=== PATIENT | female | born 1950 | race Caucasian/White ===

== ENCOUNTER → 2020-10-07 11:44 | Outpatient (POV) | payer MEDICARE, SELFPAY | PROVIDERS: Visit Provider Audiologist | DX: Z00.00 Encounter for general adult medical examination without abnormal findings (principal) ==

== ENCOUNTER 2023-10-25 20:32 | Emergency (ER) | payer MEDICARE, SELFPAY ==
[2023-10-25 20:47] VITALS: BP 169/77; PULSE 76; RESP 18; TEMP 36.4; O2SAT 99; BMI 29.5
--- NOTE | 2023-10-25 20:54 | CT_ITS ---
PROCEDURE INFORMATION: Exam: CT Head Without Contrast Exam date and time: 10/25/2023 9:10 PM Age: 73 years old Clinical indication: Pain; Other: Fall; Additional info: Fall on coumadin TECHNIQUE: Imaging protocol: Computed tomography of the head without contrast. Radiation optimization: All CT scans at this facility use at least one of these dose optimization techniques: automated exposure control; mA and/or kV adjustment per patient size (includes targeted exams where dose is matched to clinical indication); or iterative reconstruction. COMPARISON: No relevant prior studies available. FINDINGS: Brain: Central and cortical brain atrophy evident, appropriate for patient age. 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 No acute intracranial hemorrhage. Cerebral ventricles: No ventriculomegaly. Paranasal sinuses: Visualized sinuses are unremarkable. No fluid levels. Mastoid air cells: Visualized mastoid air cells are well aerated. Bones/joints: Unremarkable. No acute fracture. Soft tissues: Unremarkable. IMPRESSION: No acute intracranial abnormality.
--- NOTE | 2023-10-25 20:54 | XR_ITS ---
PROCEDURE INFORMATION: Exam: XR Left Knee Exam date and time: 10/25/2023 9:12 PM Age: 73 years old Clinical indication: Pain; Knee; Left; Additional info: Fall TECHNIQUE: Imaging protocol: Radiologic exam of the left knee. Views: 1 or 2 views. COMPARISON: No relevant prior studies available. FINDINGS: Bones/joints: No acute fracture or malalignment. Tricompartmental osteoarthritis. 3 cm peripherally sclerotic focus within the proximal tibial metadiaphysis without aggressive features. Joint effusion. Soft tissues: Anterior knee soft tissue swelling. IMPRESSION: Anterior knee soft tissue swelling and joint effusion. No acute osseous findings.
--- NOTE | 2023-10-25 20:54 | CT_ITS ---
PROCEDURE INFORMATION: Exam: CT Maxillofacial Without Contrast Exam date and time: 10/25/2023 9:12 PM Age: 73 years old Clinical indication: Eye pain and face pain; Right; Additional info: Fall on coumadin TECHNIQUE: Imaging protocol: Computed tomography of the face without contrast. Radiation optimization: All CT scans at this facility use at least one of these dose optimization techniques: automated exposure control; mA and/or kV adjustment per patient size (includes targeted exams where dose is matched to clinical indication); or iterative reconstruction. COMPARISON: CT HEAD/BRAIN WO CON 10/25/2023 9:10 PM FINDINGS: Orbital cavities: Orbits are normal. Globes are unremarkable. Bones/joints: No acute fracture. Paranasal sinuses: Normal. No air-fluid levels. Soft tissues: Unremarkable. IMPRESSION: No acute findings.
--- NOTE | 2023-10-25 20:54 | CT_ITS ---
PROCEDURE INFORMATION: Exam: CT Cervical Spine Without Contrast Exam date and time: 10/25/2023 9:14 PM Age: 73 years old Clinical indication: Neck pain; Additional info: Fall on coumadin TECHNIQUE: Imaging protocol: Computed tomography of the cervical spine without contrast. Radiation optimization: All CT scans at this facility use at least one of these dose optimization techniques: automated exposure control; mA and/or kV adjustment per patient size (includes targeted exams where dose is matched to clinical indication); or iterative reconstruction. COMPARISON: CT FACIAL BONES WO CON 10/25/2023 9:12 PM FINDINGS: Bones/joints: No acute fracture. Normal alignment. Moderate disc space narrowing throughout the cervical spine. No significant disc bulge or herniation. No severe spinal canal stenosis. No significant neural foraminal narrowing. Lungs: Lung apices are normal. Soft tissues: Unremarkable. IMPRESSION: No acute findings.
--- NOTE | 2023-10-25 20:55 | [facility].EDGENADL ---
Discharge Plan Disposition Patient Disposition: Home, Self-Care Referrals Follow up/Referrals: Teresa Henderson [Primary Care Provider] - See instructions Activity Restrictions/Add. Instructions Additional Instructions/Restrictions: At this time it was felt you are safe to be discharged home. If new or worsening symptoms please do not hesitate to return the emergency department. If symptoms persist please follow-up with your family doctor as you are able. Clinical Impressions Clinical Impression: Effusion of knee, Fall Discharge ED Provider: Alexander Rowell General Adult HPI General Chief complaint: Fall Stated complaint: AO fell around 1999 PM. hit face and Left knee Time Seen by Provider: 10/25/23 20:39 Mode of Arrival: Ambulatory Source of Information: Patient Limitations: No Limitations Description of Symptoms (Recalled from ER Triage Doc. by RN): pt states around 1999 she slipped on ice and fell. pt presents with bruising/edema to the R side of her forehead and an abrasion to the corner of her R outer eye. pt states she is on coumadin. no LOC. no neck/back pain. History of Present Illness HPI narrative: Patient is 73-year-old female with past medical history of inferior vena cava filter, previous PE on Coumadin who presents emergency department for evaluation of traumatic injury sustained in a fall. Patient had a ground-level fall forward without loss of consciousness in her driveway after slipping on ice at approximately 8:00 this evening. No neck pain. She hit her left knee and face and presents here for continued evaluation at the behest of family members. Related Data Allergies Allergy/AdvReac Type Severity Reaction Status Date / Time azathioprine [From Imuran] AdvReac Hypotension Verified 10/25/23 20:56 levofloxacin [From Levaquin] AdvReac Rash Verified 10/25/23 20:56 [facility] Disclaimer: The information contained in this section may have been updated after the patient was seen, as this information can be updated by other users. Medical History (Updated 10/25/23 @ 21:51 by Alexander Rowell MD) Granulomatosis with polyangiitis Surgical History (Updated 10/25/23 @ 20:57 by Jane Faria RN) Kidney transplant recipient Social History (Updated 10/25/23 @ 21:51 by Alexander Rowell MD) Smoking Status: Never smoker alcohol intake: never current occupational status: other Travel in the last 8 weeks: None ROS Obtained: Yes Systems reviewed as appropriate & no additional complaints except as documented Physical Exam General General appearance: alert and in no apparent distress Head Head exam: normocephalic and other (Abrasions over face) Eye Eye exam: Present PERRL and EOMI ENT ENT exam: Present mucous membranes moist Neck Neck exam: Present normal inspection; Absent tenderness Chest Chest inspection: Present normal inspection and symmetric chest wall rise Respiratory Respiratory exam: Present normal lung sounds bilaterally; Absent respiratory distress Cardiovascular Cardiovascular exam: Present regular rate and normal rhythm Abdominal Exam Abdominal exam: Present soft; Absent tenderness Extremities Exam Extremities exam: Present other (Bruising over the left knee, 5 out of 5 strength at the knee) Neurological Exam Neurological exam: Present alert and CN II-XII intact; Absent motor sensory deficit (5 out of 5 strength bilateral upper and lower extremities) Psychiatric Psychiatric exam: Present normal affect Skin Skin exam: Present warm and dry Medical Decision Making Vitor Inquiry Pt receiving controlled substance: No Vital Signs: 10/25/23 20:47 10/25/23 22:02 Temperature 97.6 F 98.0 F Temperature Source Oral Pulse Rate 66 Pulse Rate [Left] 76 Respiratory Rate 18 18 Blood Pressure 130/73 Blood Pressure [Right Arm] 169/77 H Blood Pressure Mean [Right Arm] 107 Blood Pressure Source [Right Arm] Automatic Cuff Blood Pressure Position [Right Arm] Sitting 02 Sat by Pulse Oximetry 99 Oxygen Delivery Method Room Air Orders (Tests/Meds): ORDERS Category Date Time Status CT cervical spine wo con Stat Cat Scan 10/25/23 20:[address] facial bones wo con Stat Cat Scan 10/25/23 20:[address] head/brain wo con Stat Cat Scan 10/25/23 20:54 Completed Knee XR left 2 views [XR knee LT 2V] Stat Exams 10/25/23 20:54 Completed Medical Decision Narrative: In summary patient is a 73-year-old female with past medical history described above presents emergency department for evaluation of traumatic injury sustained in a fall on anticoagulation. Patient is hemodynamically stable nontoxic-appearing upon arrival, afebrile. Differential diagnosis includes intracranial hemorrhage, facial bone fracture, lower extremity fracture, among others. Based on history and physical exam limited trauma survey will be conducted with CT of the head, facial bones, cervical spine as well as plain film of the left knee. Informal interpretation of noncontrasted CT scan of the head shows no large intra-axial hemorrhage or shift. CT imaging shows no acute traumatic pathology. Plain film of the left knee shows soft tissue swelling and joint effusion without acute osseous findings. Given this patient's knee with Erasto wrap, patient underwent ambulation at bedside and was successful and is appropriate for discharge at this time. Critical Care Critical Care Time Critical Care Time: No
[2023-10-25 22:02] VITALS: BP 130/73; PULSE 66; RESP 18; TEMP 36.7; O2SAT 100
== END 2023-10-25 22:06 | disposition home or self-care (01) ==
PROVIDERS: Emergency Provider Emergency Medicine; PCP Internal Medicine
DX: M25.462 Effusion, left knee (principal); S00.211A Abrasion of right eyelid and periocular area, initial encounter; S00.93XA Contusion of unspecified part of head, initial encounter; M31.30 Wegener's granulomatosis without renal involvement; Z94.0 Kidney transplant status; Z79.01 Long term (current) use of anticoagulants; W01.0XXA Fall on same level from slipping, tripping and stumbling without subsequent striking against object, initial encounter
CPT/HCPCS: 70450; 70486; 72125; 73560; 99285